=== PATIENT | male | born 1970 | race Two or more races ===

== ENCOUNTER 2024-05-22 11:24 | Outpatient (CLI) | payer BC | END 2024-05-22 11:25 | disposition home or self-care (01) | LOC: SCSRAD 11:24 | PROVIDERS: ATTEND Anesthesiology Pain Medicine | DX: M54.50 Low back pain, unspecified (principal); M47.816 Spondylosis without myelopathy or radiculopathy, lumbar region | CPT/HCPCS: 72120 ==